=== PATIENT | male | born 1965 | race Caucasian/White ===

== ENCOUNTER 2017-08-14 18:38 | Emergency (ER) | payer BC ==
--- NOTE | 2017-08-14 19:58 | ERNOTE ---
Headache ER HPI - Narrative Date of Service: 08/14/17 - General Presenting Symptoms: headache, other - Headache earlier today. Time Seen by Provider: 08/14/17 19:37 Source: patient, family Exam Limitations: no limitations - Immun/Allergies/Home Medications Immunizations: IMMUNIZATION HX Immunizations Up to Date Yes History of Influenza Vaccine No Allergies/Adverse Reactions: Allergies No Known Allergies Allergy (Unverified 08/14/17 19:06) Home Medications: HOME MEDICATIONS Omeprazole 20 mg PO BID 08/14/17 [Last Taken Unknown] - History of Present Illness Narrative: Patient states that since morning he has had a transient dull headache behind the right eye. States he has been taking advil and excedrin which has been helping. However he has noticed some weakness or lack of muscle response periodically on the right upper extremity. However very sporatic in arm changes. Denies any current symptoms. Date (Duration): 08/12/17 Activity at onset: other - Working Timing of Headache: cannot pinpoint onset Context Headache: Present: new onset, other - Denies any trauma. Quality: Present: throbbing Severity Maximum: Present: moderate Severity-Currently: Present: mild Headache frequency: Present: no recent headache Modifying Factors - (Improves): Reports: medication Modifying Factors - (Worsens): Reports: movement Associated Symptoms: Reports: other - Numbness with minimal response of the RUE occasionally. Exacerbated by:: Reports: noise, other - Slightly sensetive to light. Review of Systems - Narrative Narrative: See HPI Denies any dyspnea, CP, or abdominal pain. States currently he is pain free but does feel tired. - Review of Systems Constitutional: Present: weakness, malaise, decreased activity level EYE: Present: other - Occasional photophobia. No consistent. ENT: Present: no symptoms reported Respiratory: Present: no symptoms reported Cardiology: Present: no symptoms reported Gastrointestinal/Abdominal: Present: no symptoms reported Skin: Present: no symptoms reported Neurological: Present: headache, other - States he wanted to scratch his nose earlier today and could not lift the right arm. Lasted over several minutes then improved. States was an isolated event and no longer is having those symptoms. However feels as if he is not thinking clearly or not able to put his words together. However others have not neccesarily noticed. Denies dizziness for current headache. Endocrine: Present: no symptoms reported Hematologic/Lymphatic: Present: no symptoms reported Psych: Present: no symptoms reported - Patient's Past Medical History Patient History - Medical: GERD Patient History - Cardiac/Respiratory: No pertinent hx Patient History - Cancer: No Hx of Cancer Patient History - Surgical Procedures: No surgical history - Social History Living Situations: home Smoking Status: Current every day smoker - Immunizations Immunizations Up to Date: Yes History of Influenza Vaccine: No Physical Exam - Physical Exam General Appearance: Present: wd/wn, alert, no apparent distress Head Exam: Present: normal inspection, no evidence of injury, no tenderness w palpation Eye Exam: Normal inspection: bilateral, PERRL: bilateral, EOMI: bilateral Ears, Nose, Throat: Present: normal ENT inspection, normal pharynx, other - Has some ethmoid tenderness bilateral with allergic shiners bilateral. Neck: Present: normal inspection, nontender, supple, full range of motion, other - No bruits Respiratory: Present: no respiratory distress, normal breath sounds, no accessory muscle use, chest nontender, lungs clear Cardiovascular/Chest: Present: regular rate, rhythm, no murmur, normal peripheral pulses Peripheral Pulses: N=norm/S=strong/W=weak/B=bound/A=absent: Radial (R): Normal, Radial (L): Normal Gastrointestinal/Abdominal: Present: normal bowel sounds, nontender, nondistended, soft Back Exam: Present: normal range of motion, no CVA tenderness, no vertebral tenderness Extremity Exam: Present: normal inspection, non-tender, normal range of motion Neurological Exam: Present: alert, oriented, normal mood/affect, no motor/ sensory deficits, 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 - Vital Signs Patient's Vital Signs:: I have reviewed the patient's vital signs. Vital Signs: Vital Signs 08/14/17 18:59 Temperature 37 C Pulse Rate 83 Respiratory 18 Rate Blood Pressure 145/101 O2 Sat by Pulse 97 Oximetry - CT/Ultrasound CT/Ultrasound Narrative: Head CT negative per radiologist and my review. - Progress/Reassessment Chief Complaint: Headache Progress:: Pain free at discharge Progress Note-Subjective: 08/14/17 20:54 States the headache comes and goes and currently has absolutely no symptoms. Plan - Plan Plan: Unable to obtain MRI over the weekend. No indiction that patient is in an emergent situation. Decision based history, labs, CT head, and lack of current symptoms. Departure Clinical Impression: Headache above the eye region - Departure Disposition: Home Follow Up Needed Condition: Good Additional Instructions: Head CT along with labs are normal today. It's possible the headache is a result of congestion and environmental allergens as well. My suggestion would be to continue with pseudophedrine over the counter as well as the claritin tab daily. Also follow up with family provider in 2-3 days for consideration of an MRI. However if the headache returns or does not respond to advil let us know. Referrals: Darryn Mcfarlane MD [Primary Care Provider] -
[2017-08-14 20:04] LABS: Hemoglobin 16.1 gm/dL (13.5-18.0); Mean Corpuscular Hemoglobin 31.5 pg (27-31); Mean Platelet Volume 9.9 fl (6.0-9.5); Neutrophil # 5.7 K/mm3 (1.3-6.0); Neutrophil % 61.2 % (42-75.0); Platelet Count 203 K/mm3 (150-450); Red Blood Count 5.11 M/mm3 (4.7-6.0); Red Cell Distribution Width 12.9 % (11.5-14.0); White Blood Count 9.3 K/mm3 (4.0-10.5)
[2017-08-14 20:19] LABS: Albumin * 3.8 gm/dl (3.4-5.0); Anion Gap 13.8 mmol/L (6.8-13.8); BUN/Creatinine Ratio 14.4 (9.0-21.6); Bilirubin, Total 0.4 mg/dL (0.0-1.1); Ca. Corrected For Albumin 8.7 mg/dL (8.4-10.2); Calcium * 8.9 mg/dL (7.9-10.9); Carbon Dioxide 29.3 mmol/L (24-32.6); Magnesium 2.2 mg/dL (1.2-2.8); Phosphorus 3.5 mg/dL (2.2-4.2); Potassium 4.1 mmol/L (3.4-4.6); Total Protein 7.7 gm/dL (6.2-8.2)
[2017-08-14] MEDS ORDERED: CLONIDINE HCL 0.1 MG TABLET PO ONE (21:09)
[2017-08-14] MEDS ORDERED: CLONIDINE HCL 0.1 MG TABLET ONE (21:11)
[2017-08-14 21:50] VITALS: BP 162/110
== END 2017-08-14 22:05 | disposition home or self-care (01) ==
LOC: ER 18:38
DX: R51 Headache (principal); F17.200 Nicotine dependence, unspecified, uncomplicated

== ENCOUNTER 2017-08-17 14:36 | Observation (INO) | payer BC ==
[2017-08-17 15:57] LABS: Hematocrit 51.1 % (42.0-52.0); Mean Cell Volume 89.6 fl (78-100); Mean Corpuscular Hemoglobin 31.6 pg (27-31); Mean Corpuscular Hgb Conc 35.2 g/dl (32-36); Mean Platelet Volume 9.7 fl (6.0-9.5); Neutrophil # 6.1 K/mm3 (1.3-6.0); Neutrophil % 68.8 % (42-75.0); Platelet Count 226 K/mm3 (150-450); Red Cell Distribution Width 12.7 % (11.5-14.0); White Blood Count 8.9 K/mm3 (4.0-10.5)
[2017-08-17 16:11] LABS: Albumin * 4.1 gm/dl (3.4-5.0); Anion Gap 15.4 mmol/L (6.8-13.8); Bilirubin, Total 0.7 mg/dL (0.0-1.1); Ca. Corrected For Albumin 8.7 mg/dL (8.4-10.2); Calcium * 9.1 mg/dL (7.9-10.9); Carbon Dioxide 26.5 mmol/L (24-32.6); Potassium 3.9 mmol/L (3.4-4.6); Total Protein 8.5 gm/dL (6.2-8.2)
--- NOTE | 2017-08-17 16:39 | ERNOTE ---
Neuro HPI ER Record Date of Service: 08/17/17 Presenting Symptoms: weakness Time Seen by Provider: 08/17/17 14:42 Source: patient Exam Limitations: no limitations Immunizations: IMMUNIZATION HX Immunizations Up to Date Yes History of Influenza Vaccine No Hx Pneumococcal Vaccination No Allergies/Adverse Reactions: Allergies Allergy/AdvReac Type Severity Reaction Status Date / Time No Known Allergies Allergy Verified 08/17/17 14:54 Home Medications: HOME MEDICATIONS Omeprazole 20 mg PO BID 08/14/17 [Last Taken Unknown] - History of Present Illness Narrative: Patient presents to the ED from MRI. He has been having some troubles thinking , right sided weakness and high blood pressure since . He was seen here a couple of days ago. Saw Dr Mcfarlane and MRI ordered. Sent here as MRI abnormal. Still feel right sided weakness. No CP or SOB. No trauma. Nothing really makes this better or worse. No headache Onset: other - 5 days ago onset of Sx. - Character of Deficits New weakness: Present: RUE, RLE Additional Deficits: Present: impaired speech, decrease ability to walk. Absent : vision problems, difficulty swallowing, decrease ability to stand Baseline Cognition: Present: alert, oriented x 4 Baseline Gait: Present: walks w/o assistance Associated Symptoms: Denies: fever/chills, chest pain, headache, seizure, altered mental status, decreased responsiveness Prior Treament: Reports: recently seen Review of Systems - Review of Systems Constitutional: Absent: fever EYE: Absent: vision changes ENT: Absent: sore throat Respiratory: Absent: shortness of breath Cardiology: Absent: chest pain Gastrointestinal/Abdominal: Absent: abdominal pain Genitourinary: Absent: dysuria Neurological: Present: See HPI All Other Systems: All systems neg except as marked - Patient's Past Medical History Patient History - Medical: GERD Patient History - Cardiac/Respiratory: CVA/Stroke Patient History - Cancer: No Hx of Cancer Patient History - Surgical Procedures: No surgical history Patient History - Other: None - Social History Living Situations: home Psych History: No pertinent hx Smoking Status: Current every day smoker - Immunizations Immunizations Up to Date: Yes Hx Pneumococcal Vaccination: No History of Influenza Vaccine: No Physical Exam - Physical Exam General Appearance: Present: alert, no apparent distress Head Exam: Present: normal inspection, no evidence of injury Eye Exam: Normal inspection: bilateral, PERRL: bilateral Ears, Nose, Throat: Present: normal ENT inspection Neck: Present: normal inspection, nontender Respiratory: Present: no respiratory distress, normal breath sounds, no accessory muscle use, lungs clear Cardiovascular/Chest: Present: regular rate, rhythm, normal peripheral pulses Gastrointestinal/Abdominal: Present: normal bowel sounds, nontender, nondistended, soft Back Exam: Present: normal range of motion Extremity Exam: Present: normal inspection Neurological Exam: Present: alert, normal mood/affect, other - NIH - 3. Right pronator drift and right finger to nose dysmetria. Mild dysarthria.. Absent: normal cerebellar test, facial droop Skin Exam: Present: normal color, warm/dry ED Progress - Results and Orders Patient's Lab Results:: I have reviewed the patient's lab results. - Vital Signs Patient's Vital Signs:: I have reviewed the patient's vital signs. Vital Signs: Vital Signs 08/17/17 08/17/17 08/17/17 14:49 14:54 15:56 Temperature 36.7 C Pulse Rate 87 83 83 Respiratory 17 16 16 Rate Blood Pressure 151/112 147/101 O2 Sat by Pulse 96 96 96 Oximetry - EKG EKG: NSR EKG read: Interp. by me EKG Comments: NSR rate 91. Non-specific, no STEMI. - CT/Ultrasound CT/Ultrasound Narrative: I reviewed the MRI with the radiologist - Progress/Reassessment Chief Complaint: CerebroVascular Accident Progress Note-Subjective: 08/17/17 16:[address] Martinez, he recommends LAURA, MR angio, carotids and Plavix. D/W Dr Mcfarlane who will admit. Plavix given here. 08/17/17 16:39 Patient not tPA candidate, 5 days of symptoms. Departure Clinical Impression: Stroke - Departure Disposition: [facility] Condition: Fair
--- NOTE | 2017-08-17 20:40 | HP ---
Chief Complaint - Chief Complaint Date of Service: 08/17/17 Time of Service: 20:40 Chief Complaint: Right side weakness,aphasia History of Present Illness: 51 years old male adm to the hospital from ER with reports of right side hemiparesis, right arm numbness and expressive aphagia. PMH significant for hypertension, smoker and GERD. Per on night pt had an episode of right side weakness, numbness and difficulty speaking. He was weak upon standing got diaphoretic and stated his heart was racing. His s/s continues into Wednesday but didn't progress any worst, pt thought he was having a cold or was allergy. His wanted to bring him to the hospital but he was reluctant. 08/14/17 He came to the ER had CT head-No acute intra-cranial process. 08/17/17 he followed up with Dr Mcfarlane and Had MRI head- Acute to subacute infarct within left high convexity parietal lobe, basal ganglion, temporal lobe, and occipital lobe. consider showing emboli from a more proximal source. pt currently denies palpitation, chest pain, cough, shortness of breath , and stated he have to make purposeful effort to move his right leg. Plan to have plavix, carotid duplex and echo. Plan of care discussed with pt and they verbalized understanding and agree. - Patient's Past Medical History Patient History - Medical: GERD Patient History - Cardiac/Respiratory: CVA/Stroke, Hypertension Patient History - Cancer: No Hx of Cancer Patient History - Surgical Procedures: No surgical history Patient History - Other: None - Family History Mother Family History - Medical: History Unknown Family History - Cardiac/Respiratory: History Unknown Family History - Cancer: History Unknown Father Family History - Medical: No pertinent hx, Arthritis Family History - Cancer: No pertinent family hx - Social History Living Situations: spouse Abuse History: No History of abuse Psych History: No pertinent hx Smoking Status: Current every day smoker Have you smoked in the past 12 months: Yes Do you dip or chew tobacco: No Patient requests Smoking Cessation Consult: No Initiate information on Smoking Cessation: Yes Alcohol Use: none Drug Use: none - Immunizations Immunizations Up to Date: Yes Hx Pneumococcal Vaccination: No History of Influenza Vaccine: No Review Of Systems (GEN) - Review of Systems Generalized/Overall Review: Present: Weakness EENTM: Present: No Symptoms Reported Respiratory: Present: No Symptoms Reported Cardiac: Present: No Symptoms Reported Abdominal: Present: No Symptoms Reported Genitourinary: Present: No Symptoms Reported Musculoskeletal: Present: Other - Right side weakness Neurological: Present: Numbness, Weakness, Other - aphasia Skin: Present: No Symptoms Reported Endocrine: Present: No Symptoms Reported Immunizations: IMMUNIZATION HX Immunizations Up to Date Yes History of Influenza Vaccine No Hx Pneumococcal Vaccination No Allergies/Adverse Reactions: Allergies Allergy/AdvReac Type Severity Reaction Status Date / Time No Known Allergies Allergy Verified 08/17/17 14:54 Home Medications: HOME MEDICATIONS RX: Omeprazole 20 mg PO BID 08/14/17 [Last Taken Unknown] Exam - Exam Vital Signs: Vital Signs - Last Taken Temp 36.4 C L 08/17/17 16:36 Pulse 80 08/17/17 17:51 Resp 18 08/17/17 16:36 BP 141/104 08/17/17 16:36 Pulse Ox 98 08/17/17 16:36 Constitutional: Present: Alert, Oriented x3, Cooperative, Well developed, No distress, Young ENT Exam: Present: hearing grossly normal Eye Exam: bilateral eye: normal inspection Neck: Present: full range of motion Back Exam: Present: normal inspection Breasts: Present: Exam deferred Respiratory: Present: chest non-tender, lungs clear, normal breath sounds, no respiratory distress Cardiovascular/Chest: Present: normal peripheral pulses, regular rate, rhythm, no chest tenderness, no edema Peripheral Pulses: carotid (R): 3+, carotid (L): 3+ Abdomen: Present: Normal bowel sounds, soft, nontender, nondistended, no rebound tenderness /Rectal: Present: Exam deferred Extremity: Present: normal range of motion, non-tender, normal inspection, no pedal edema, no calf tenderness Skin Exam: Present: normal color, warm/dry, no cyanosis Lymphatic: Present: no adenopathy Neurologic: Present: normal mood/affect, oriented x 3, aphasia, motor weakness Appearance: Present: appropriate appearance Eye contact: Present: cooperative, good eye contact, decreased rate of speech Thoughts: Present: normal thought pattern, no apparent hallucination Diagnostic Studies: Laboratory Results WBC 8.9 K/mm3 (4.0-10.5) 08/17/17 15:56 RBC 5.70 M/mm3 (4.7-6.0) 08/17/17 15:56 Hgb 18.0 gm/dL (13.5-18.0) 08/17/17 15:56 Hct 51.1 % (42.0-52.0) 08/17/17 15:56 MCV 89.6 fl (78-100) 08/17/17 15:56 MCH 31.6 pg (27-31) H 08/17/17 15:56 MCHC 35.2 g/dl (32-36) 08/17/17 15:56 RDW 12.7 % (11.5-14.0) 08/17/17 15:56 Plt Count 226 K/mm3 (150-450) 08/17/17 15:56 MPV 9.7 fl (6.0-9.5) H 08/17/17 15:56 Immature Gran % (Auto) 0.20 % (0.001-0.429) 08/17/17 15:56 Immature Gran # (Auto) 0.02 K/mm3 (0.000-0.0310) 08/17/17 15:56 Neutrophils % 68.8 % (42-75.0) 08/17/17 15:56 Lymphocytes % 22.1 % (20-51) 08/17/17 15:56 Monocytes % 6.3 % (0.0-9) 08/17/17 15:56 Eosinophils % 2.0 % (0.0-3.0) 08/17/17 15:56 Basophils % 0.6 % (0.0-1.0) 08/17/17 15:56 Nucleated RBC % 0.0 k/mm3 (0-1) 08/17/17 15:56 Neutrophils # 6.1 K/mm3 (1.3-6.0) H 08/17/17 15:56 Lymphocytes # 2.0 k/mm3 (1.5-3.5) 08/17/17 15:56 Monocytes # 0.6 k/mm3 (0.0-1.0) 08/17/17 15:56 Eosinophils # 0.2 k/mm3 (0.0-0.7) 08/17/17 15:56 Absolute Basophils 0.1 k/mm3 (0.0-0.1) 08/17/17 15:56 ESR 12 mm/hr (0-10) H 08/17/17 15:56 PT 10.0 Seconds (9.0-11.0) 08/17/17 15:56 INR (Anticoag Therapy) 1.00 INR (0.90-1.10) 08/17/17 15:56 Sodium 140 mmol/L (132-142) 08/17/17 15:56 Plasma Sodium 140 mmol/L (130-142) 08/17/17 15:56 Potassium 3.9 mmol/L (3.4-4.6) 08/17/17 15:56 Chloride 102 mmol/L (97-106) 08/17/17 15:56 Carbon Dioxide 26.5 mmol/L (24-32.6) 08/17/17 15:56 Anion Gap 15.4 mmol/L (6.8-13.8) H 08/17/17 15:56 BUN 21 mg/dL (6-23) 08/17/17 15:56 Creatinine 1.31 mg/dL (0.4-1.4) 08/17/17 15:56 Est GFR (Non-Af Amer) 62 mL/min (60-130) 08/17/17 15:56 BUN/Creatinine Ratio 16.0 (9.0-21.6) 08/17/17 15:56 Random Glucose 99 mg/dL (70-110) 08/17/17 15:56 Calcium 9.1 mg/dL (7.9-10.9) 08/17/17 15:56 Calcium Adj for Albumin 8.7 mg/dL (8.4-10.2) 08/17/17 15:56 Total Bilirubin 0.7 mg/dL (0.0-1.1) 08/17/17 15:56 AST 30 U/L (0-48) 08/17/17 15:56 ALT 33 U/L (19-67) 08/17/17 15:56 Alkaline Phosphatase 124 U/L (50-170) 08/17/17 15:56 Total Protein 8.5 gm/dL (6.2-8.2) H 08/17/17 15:56 Albumin 4.1 gm/dl (3.4-5.0) 08/17/17 15:56 08/17/17 MRI head- Acute to subacute infarct within left high convexity parietal lobe, basal ganglion, temporal lobe, and occipital lobe. consider showing emboli from a more proximal source Assessment/Plan - Narrative Narrative: CVA pt report of right ride hemiparesis and aphasia that began on , came to ER on Wednesday had had MRI today MRI head- Acute to subacute infarct within left high convexity parietal lobe, basal ganglion, temporal lobe, and occipital lobe. consider showing emboli from a more proximal source Pt outside the window period for TPA On adm BP 141/104--->130/91 PT/OT and speech eval and treatment Carotid duplex and echo pending Plavix Expressive aphasia- secondary to CVA pt and stated he know what he want to say but have a hard time finding the words and speaking it sometimes Speech therapy eval and treatment Right side Hemiparesis - secondary to CVA PT/OT eval and treat Substance abuse Tobacco Smoker pt reluctant to use nicotine patch Code status- Full Code GI ppx: Protonix VTE ppx: SCD and ambulate TIME 35 MINUTES, case discussed with Dr Mcfarlane - Assessment/Plan (1) Expressive aphasia Problem: Acute (2) Hemiparesis Problem: Acute (3) Stroke Problem: Acute (4) GERD (gastroesophageal reflux disease) Problem: Chronic (5) Smoker Problem: Chronic
[2017-08-17] MEDS: NICOTINE 21 MG PATC TD SCH (21:29)
[2017-08-18 07:00] VITALS: BP 141/93
[2017-08-18] MEDS ORDERED: PANTOPRAZOLE SODIUM 20 MG TABLET.DR PO SCH (07:00)
[2017-08-18] MEDS: CLOPIDOGREL BISULFATE 75 MG TABLET PO SCH ×2 (07:43→09:28)
--- NOTE | 2017-08-18 08:55 | DS ---
Description of Stay: Pt. admitted for Left sided diffuse CVA - including cerebellum, with word finding issues, dysmetria and right sided weakness. Due to the findings and BP' s running high, pt. was admitted to obs bed to monitor sx and BP's, do some additional preliminary tests and evaluations. Carotid dopplers were done, which didn't show any concerning plaque/blockage. LA[facility]A will be scheduled outpt. and is necessary due to the "showering effect" on MRI giving concern for possible valvular vegetations, though no murmurs heard on cardiac exam. Pt. still had 4/5 right sided weakness vs. 5/5 on left. He is right handed. He still has dysmetria on the right, but word finding was improved. No slurred speech or swallowing difficulties. ST/OT/PT evaluated pt. and we will continue therapy outpt. RTW will depend on patients comfort level. Recent CHL was reviewed again - LDL was 57, HDL 27. No statin therapy initiated at this time. Omeprazole was held due to it can interfere with plavix. may need to change to other med if sx persist. Pt. has outpt sleep study scheduled. Pt. was counselled on his smoking and he will work on quitting, reducing to at least 5 daily in short term. Deep breathing exercises and smoking outside ( which he already does) was discussed with pt. and . Procedures Performed: none Discharge Disposition: Home self care Disposition: Home self-care Condition: Fair Discharge Activity: Activity as tolerated Discharge Diet: General/regular food Alf Therapy: Physicial Therapy, Occupation Therapy, Speech Therapy Referrals: Darryn Mcfarlane MD [Primary Care Provider] - Two Weeks Prescriptions (Any new or edited meds): Clopidogrel Bisulfate [Plavix] 75 mg PO DAILY #30 tab Dexamethasone 6 mg PO BID #14 tablet Complete Home Medications List: Complete Home Medication List: Clopidogrel Bisulfate [Plavix] 75 mg PO DAILY tablet 08/18/17 Clopidogrel Bisulfate [Plavix] 75 mg PO DAILY #30 tab 08/18/17 Dexamethasone 6 mg PO BID #14 tablet 08/18/17 Amb Orders for Discharge: US LAURA Probe Placement Time Frame: 2 Weeks, Location: Determined By Patient
[2017-08-18] MEDS: NICOTINE 21 MG PATC TD SCH (09:28)
== END 2017-08-18 10:00 | disposition home or self-care (01) ==
LOC: ER 14:36 → MS 16:17
PROVIDERS: ADMIT Family Medicine; ATTEND Family Medicine
DX: I63.9 Cerebral infarction, unspecified (principal); R47.01 Aphasia; G81.91 Hemiplegia, unspecified affecting right dominant side; R29.810 Facial weakness; I10 Essential (primary) hypertension; F17.210 Nicotine dependence, cigarettes, uncomplicated; Z68.29 Body mass index [BMI] 29.0-29.9, adult
CPT/HCPCS: 36415; 80053; 85025; 85610; 85652; 92523; 93005; 93880; 97162; 97165; 99285; G0378